=== PATIENT | male | born 1960 | race Caucasian/White ===

== ENCOUNTER 2022-05-16 15:32 | Emergency (ER) | payer OTHER ==
[2022-05-16] MEDS ORDERED: KETOROLAC TROMETH 60MG/2ML VIAL IM ONE (18:00)
[2022-05-16] MEDS ORDERED: IBUP800T27 PO (18:15)
[2022-05-16 18:35] VITALS: BP 130/86
== END 2022-05-16 18:43 | disposition home or self-care (01) ==
LOC: ER 15:32
DX: M17.12 Unilateral primary osteoarthritis, left knee (principal); M25.462 Effusion, left knee; Z98.890 Other specified postprocedural states
CPT/HCPCS: 73562; 96372; 99283; J1885